=== PATIENT | female | born 1940 | race Caucasian/White ===

== ENCOUNTER → 2022-11-25 08:39 | Outpatient (BNVA) | payer MEDICARE, OTHER, SELFPAY | PROVIDERS: Family Provider Nurse Practitioner; PCP Nurse Practitioner Family; Referring Provider Nurse Practitioner Family; Visit Provider Psychiatry & Neurology Neurology | DX: G25.2 Other specified forms of tremor (principal); R26.9 Unspecified abnormalities of gait and mobility; R26.89 Other abnormalities of gait and mobility; Z91.81 History of falling; I25.10 Atherosclerotic heart disease of native coronary artery without angina pectoris; Z95.1 Presence of aortocoronary bypass graft; H91.93 Unspecified hearing loss, bilateral; E03.9 Hypothyroidism, unspecified; G47.00 Insomnia, unspecified; F32.A Depression, unspecified; Z96.1 Presence of intraocular lens | CPT/HCPCS: 99203 ==

== ENCOUNTER 2022-12-04 08:23 | Outpatient (CLI) | payer MEDICARE, OTHER, SELFPAY ==
--- NOTE | 2022-12-04 08:45 | USCV_ITS ---
Nandini Vela Age: 82 Gender: F : 1940 Exam Date: 12/04/2022 08:40 Ordering Phys: Cooper Farfan MD Technologist: ANDREW Exam Location: [facility] – [place] Indication: Tremors Risk Factors: Previous Vascular Surgery: Right Brachial BP: / Left Brachial BP: / Right Left Velocity (cm/s) Spectral Plaque Velocity (cm/s) Spectral Plaque Syst/Diast Broadening Syst/Diast Broadening 49.30/ 6.60 Prox CCA 163.10/ 23.30 51.90/ 7.20 Mid CCA 87.10 / 6.60 61.80/ 9.90 Distal CCA 62.80 / 12.10 70.60/ 15.40 Prox ICA 88.80 / 13.70 66.20/ 11.00 Mid ICA 93.40 / 11.40 76.10/ 14.30 Distal ICA 91.10 / 12.50 157.80 ECA 103.70 1.23 ICA/CCA 0.57 Antegrade Vertebral Antegrade 61.20/ 10.60 cm/s 72.90/ 14.80 cm/s Bi Subclavian Bi 145.9 164.7 0 0 CONCLUSIONS Right ICA stenosis <50%. Mild atheromatous plaque right carotid bulb/ICA. Left ICA stenosis <50%. Mild atheromatous plaque left carotid bulb/ICA. Normal antegrade Doppler flow noted in the right vertebral artery. Normal antegrade Doppler flow noted in the right vertebral artery. Sujit Tejeda MD (Electronically Signed) Final Date: 04 December 2022 10:18 S
--- NOTE | 2022-12-04 10:00 | USCV_ITS ---
Nandini Vela Age: 82 Gender: F : 1940 Exam Date: 12/04/2022 09:03 Ordering Phys: Cooper Farfan MD Technologist: Exam Location: [facility] [place] Indication: Tremors BP: 120 / 70 HR: 72 Rhythm: Sinus Technical Quality: Adequate MEASUREMENTS (Male / Female) Normal Values 2D ECHO LV Diastolic Diameter PLAX 4.8 cm 4.2 - 5.9 / 3.9 - 5.3 cm LV Systolic Diameter PLAX 3.6 cm IVS Diastolic Thickness 1.5 cm 0.6 - 1.0 / 0.6 - 0.9 cm IVS Systolic Thickness 1.7 cm LVPW Diastolic Thickness 1.5 cm 0.6 - 1.0 / 0.6 - 0.9 cm LVPW Systolic Thickness 1.6 cm LVOT Diameter 2.0 cm LV Ejection Fraction 2D Teich 37.1 % LV Ejection Fraction MOD 2C 60.1 % LV Ejection Fraction 2C AL 60.9 % LA Diameter 4.4 cm Aorta at Sinotubular Diameter 2.2 cm M-MODE Aortic Annulus Diameter 3.0 cm LA Ao Ratio MM 1.6 MV E Point Septal Separation 2.8 cm DOPPLER AV Peak Velocity 229.0 cm/s LVOT Peak Velocity 98.0 cm/s AV Area Cont Eq vti 1.4 cm squared AV Area Cont Eq pk 1.4 cm squared MV Area PHT 5.0 cm squared Mitral E to A Ratio 0.9 MV E' Velocity 55.0 cm/s Mitral E to MV E' Ratio 14.6 Mitral E to LV E' Lateral Ratio 10.7 Mitral E to LV E' Septal Ratio 22.9 TR Peak Velocity 261.3 cm/s TR Peak Gradient 27.3 mmHg TV Peak E Velocity 102.0 cm/s Right Atrial Pressure 3.0 mmHg Pulmonary Artery Systolic Pressu 30.3 mmHg RV Acceleration Time 0.2 s FINDINGS Left Ventricle Normal left ventricular size and systolic function, EF 68 %. Moderate left ventricular hypertrophy. No regional wall motion abnormalities. Grade I/IV diastolic dysfunction (abnormal relaxation filling pattern), normal to mildly elevated filling pressures. Right Ventricle The right ventricle is normal in size and function. Right Atrium The right atrium is normal in size. Left Atrium Moderately increased left atrial size. Mitral Valve Mild-moderate mitral valve regurgitation. Thickened mitral valve. Aortic Valve Thickened aortic valve. Moderate aortic valve regurgitation. Pressure half-time of 341 ms Tricuspid Valve Mild tricuspid valve regurgitation. Pulmonic Valve Trace pulmonary valve regurgitation. Estimated pulmonary artery peak systolic pressure 32 mmHg Pericardium Normal pericardium without effusion. Aorta Normal ascending aorta dimension. IVC Inferior vena cava not visualized. CONCLUSIONS Normal left ventricular size and systolic function, EF 68 %. Moderate left ventricular hypertrophy. No regional wall motion abnormalities. Grade I/IV diastolic dysfunction (abnormal relaxation filling pattern), normal to mildly elevated filling pressures. Mild-moderate mitral valve regurgitation. Thickened mitral valve. Moderately increased left atrial size. Thickened aortic valve. Moderate aortic valve regurgitation. Mild tricuspid valve regurgitation. Estimated pulmonary artery peak systolic pressure 32 mmHg. There is no pericardial effusion. There are no intracardiac masses. No similar previous studies are available for comparison Dr Jeferson Higginbotham MD [facility] (Electronically Signed) Final Date: 05 December 2022 11:45 S
== END 2022-12-04 08:24 | disposition home or self-care (01) ==
PROVIDERS: PCP Nurse Practitioner Family; Visit Provider Psychiatry & Neurology Neurology
DX: G25.2 Other specified forms of tremor (principal); R29.90 Unspecified symptoms and signs involving the nervous system; I08.3 Combined rheumatic disorders of mitral, aortic and tricuspid valves; I65.23 Occlusion and stenosis of bilateral carotid arteries
CPT/HCPCS: 93306; 93880

== ENCOUNTER 2022-12-23 10:56 | Outpatient (CLI) | payer MEDICARE, OTHER, SELFPAY ==
--- NOTE | 2022-12-23 10:15 | MR_ITS ---
WS: [id number] MRI HEAD WITHOUT CONTRAST TECHNIQUE: Sagittal T1, T2 axial, T2 axial FLAIR, axial and coronal T1 images, axial susceptibility w eighted imaging, axial diffusion weighted images, and coronal T2 images were obtained. CLINICAL INFORMATION: R29.90 - Unspecified symptoms and signs involving the ner... COMPARISON: None. FINDINGS: No evidence of restricted diffusion to suggest acute ischemia. Ventricular system and basal cisterns are patent. Mild small vessel changes. Moderate parenchymal volume loss. Normal posterior fossa. Norm al vascular flow voids at the skull base. No extra-axial fluid collections. No evidence of mass or ma ss effect. Paranasal sinuses and mastoid air cells well aerated. Normal posterior nasopharynx and parapharyngeal fat. No hemosiderin on susceptibly weighted images. Normal optic chiasm and pituitary infundibulum. 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 MR/MR head wo con* [id number] IMPRESSION: 1. No evidence of restricted diffusion to suggest acute ischemia. 2. Mild small vessel changes moderate parenchymal volume loss. 3. Tiny chronic lacunar infarct LEFT cerebellum. 4. No hemosiderin on susceptibly weighted images. 5. 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
--- NOTE | 2022-12-23 11:00 | MR_ITS ---
WS: [id number] MRI CERVICAL SPINE NONCONTRAST TECHNIQUE: Sagittal T1, T2 and STIR imaging. Axial T2, gradient, and fiesta imaging. CLINICAL INFORMATION: R29.90 - Unspecified symptoms and signs involving the ner... COMPARISON: None. FINDINGS: Moderate spondylitic changes cervical spine. Slight anterolisthesis C3 on C4. Slight retrolisthesis C 4 on C5. Disc osteophyte protrusions worse at C4-C6. C2-C3: Normal. C3-C4: Slight anterolisthesis C3 on C4. Disc osteophyte complex with endplate ridging. Moderate facet arthropathy. Moderate bilateral bony foraminal narrowing. Mild central canal stenosis. C4-C5: Slight anterolisthesis. Disc osteophyte complex with moderate central canal stenosis. Moderate facet arthropathy worse in the LEFT. Severe LEFT and moderate to severe RIGHT bony foraminal narrowi ng. C5-C6: Disc osteophyte complex with indentation on cervical cord. Moderate central canal stenosis. Se hardeep bilateral bony foraminal narrowing. Moderate facet arthropathy. C6-C7: Mild disc bulging with osteophytic ridging. Moderate central canal stenosis. Slight contact of the cervical cord. Moderate to severe bilateral bony foraminal narrowing. C7-T1: Moderate LEFT and mild RIGHT bony foraminal narrowing. Spinal canal is patent. Visualized brain stem structures: Normal. Prevertebral soft tissues: Normal. MR/MR cervical spin wo con* [id number] IMPRESSION: 1. Moderate spondylitic changes with slight anterolisthesis C3 on C4 and C4 on C5. 2. Moderate central canal stenosis C4-C5 C5-C6 and C6-C7 with indentation on t he cervical cord. Cord signal remains normal. 3. Mild central canal stenosis C3-C4. 4. Moderate to severe multilevel bony foraminal narrowing worse at bilateral C 3-C4, bilateral C4-C5 worse in the LEFT, bilateral C5-C6, bilateral C6-C7, and LEFT C7-T1
== END 2022-12-23 10:57 | disposition home or self-care (01) ==
PROVIDERS: PCP Nurse Practitioner Family; Visit Provider Psychiatry & Neurology Neurology
DX: G25.2 Other specified forms of tremor (principal); R29.90 Unspecified symptoms and signs involving the nervous system; M47.812 Spondylosis without myelopathy or radiculopathy, cervical region; M48.02 Spinal stenosis, cervical region; Z86.73 Personal history of transient ischemic attack (TIA), and cerebral infarction without residual deficits
CPT/HCPCS: 70551; 72141

== ENCOUNTER → 2023-02-09 14:59 | Outpatient (BNVA) | payer MEDICARE, OTHER, SELFPAY | PROVIDERS: PCP Nurse Practitioner Family; Visit Provider Psychiatry & Neurology Neurology | DX: G25.2 Other specified forms of tremor (principal); R26.9 Unspecified abnormalities of gait and mobility; E55.9 Vitamin D deficiency, unspecified; R41.3 Other amnesia | CPT/HCPCS: 0346U; 36415; 80053; 82306; 82542; 82607; 82746; 83735; 83921; 84155; 84165; 84443; 84481; 85025; 85651; 86140; 86160; 86162; 86235; 86255; 86334; 86376; 86431; 86592; 86780; 99213 ==

== ENCOUNTER → 2023-04-05 15:05 | Outpatient (BNVA) | payer MEDICARE, OTHER, SELFPAY | PROVIDERS: PCP Nurse Practitioner Family; Visit Provider Psychiatry & Neurology Neurology | DX: G25.2 Other specified forms of tremor (principal); R26.9 Unspecified abnormalities of gait and mobility | CPT/HCPCS: 99212 ==

== ENCOUNTER → 2023-07-21 13:33 | Outpatient (BNVA) | payer MEDICARE, SELFPAY | PROVIDERS: PCP Nurse Practitioner Family; Visit Provider Psychiatry & Neurology Neurology | DX: G25.2 Other specified forms of tremor (principal); R26.9 Unspecified abnormalities of gait and mobility | CPT/HCPCS: 99212 ==

== ENCOUNTER → 2023-10-25 12:32 | Outpatient (BNVA) | payer MEDICARE, SELFPAY | PROVIDERS: PCP Nurse Practitioner Family; Visit Provider Psychiatry & Neurology Neurology | DX: G25.2 Other specified forms of tremor (principal); R26.9 Unspecified abnormalities of gait and mobility | CPT/HCPCS: 99212 ==

== ENCOUNTER → 2024-05-08 12:40 | Outpatient (BNVA) | payer MEDICARE, SELFPAY | PROVIDERS: PCP Nurse Practitioner Family; Visit Provider Psychiatry & Neurology Neurology | DX: G25.2 Other specified forms of tremor (principal); R26.9 Unspecified abnormalities of gait and mobility | CPT/HCPCS: 99212; 99214 ==

== ENCOUNTER → 2024-11-06 12:58 | Outpatient (BNVA) | payer MEDICARE, SELFPAY | PROVIDERS: PCP Nurse Practitioner Family; Visit Provider Psychiatry & Neurology Neurology | DX: R41.3 Other amnesia (principal); G25.2 Other specified forms of tremor; R26.9 Unspecified abnormalities of gait and mobility | CPT/HCPCS: 36415; 83520; 99212 ==